=== PATIENT | female | born 1995 | race Caucasian/White ===

== ENCOUNTER 2024-01-10 10:25 | Day surgery (SDC) | payer BC ==
[~2024-01-10] VITALS: Ht 154.9 cm; Wt 55.3 kg
[~2024-01-10 10:25] MED LIST: BUPR150T12 PO; TRI-TAB16 PO; ZOLO100T PO; ZOLO50TA PO
[2024-01-10] MEDS ORDERED: LIDOCAINE 2% 100MG/5ML SDV (FOR ANES.) As Ordered ONE (10:28)
[2024-01-10] MEDS ORDERED: ACETAMINOPHEN 1000MG 100ML IV BAG As Ordered ONE (10:28)
[2024-01-10] MEDS ORDERED: ONDANSETRON 4MG 2ML VIAL As Ordered ONE (10:28)
[2024-01-10] MEDS ORDERED: fentaNYL 100 MCG/2 ML INJECTION As Ordered ONE (10:28)
[2024-01-10] MEDS ORDERED: MIDAZOLAM INJ 2MG/2ML VIAL As Ordered ONE (10:28)
[2024-01-10] MEDS ORDERED: LR 1,000 ML IV SCH ×2 (10:35→12:25)
[2024-01-10] MEDS: ceFAZolin SOD 2 GM in IV 1 EA IV ONE (11:45)
[2024-01-10] MEDS: ISOVUE-300 61% 100ML VIAL As Ordered ONE (11:51)
[2024-01-10] MEDS ORDERED: ePHEDrine SULFATE 25 MG/5 ML(5MG/ML) SYRINGE As Ordered ONE (12:11)
[2024-01-10] MEDS ORDERED: ONDANSETRON 4MG 2ML VIAL IV PRN (12:25)
[2024-01-10] MEDS ORDERED: HYDROMORPHONE HCL 0.5 MG/ 0.5 ML SYRINGE IV PRN (12:25)
[2024-01-10] MEDS ORDERED: fentaNYL 100 MCG/2 ML INJECTION IV PRN (12:25)
[2024-01-10] MEDS ORDERED: oxyCODONE 5MG TAB PO PRN (12:25)
[2024-01-10] MEDS ORDERED: OXYB5TAB14 PO (12:48)
[2024-01-10 13:05] VITALS: BP 125/79; TEMP 97.3; O2SAT 98
== END 2024-01-10 13:25 | disposition home or self-care (01) ==
LOC: M SDC 10:25
PROVIDERS: ATTEND Urology
DX: N20.1 Calculus of ureter (principal); Z79.899 Other long term (current) drug therapy; Z87.891 Personal history of nicotine dependence
CPT/HCPCS: 52332; 52352; 76000; 81025; 82365; C1769; C1894; C2617; J0131; J0690; J1100; J2250; J2405; J3010; Q9967